=== PATIENT | female | born 1945 | race Caucasian/White ===

== ENCOUNTER 2025-06-03 06:08 | Inpatient (IN) | payer MEDICARE ==
[2025-06-03] MEDS ORDERED: Vancomycin HCl 1.5 GM VIAL ONE (06:54)
[2025-06-03] MEDS ORDERED: CEFAZOLIN 2 GM VIAL ONE (06:54)
[2025-06-03] MEDS ORDERED: Tranexamic Acid 1,000 MG/10 ML VIAL ONE ×2 (06:54→10:35)
[2025-06-03] MEDS ORDERED: Ropivacaine 0.5% HCl/PF (150 MG/30 ML VIAL) ONE (07:47)
[2025-06-03] MEDS ORDERED: Bupivacaine 0.25% HCL 30 ML VIAL ONE (07:56)
[2025-06-03] MEDS ORDERED: Lidocaine 1% PF 5 ML VIAL ONE (08:25)
[2025-06-03] MEDS ORDERED: PROPOFOL 20 ML ONE (08:26)
[2025-06-03] MEDS ORDERED: fentaNYL PF 100 MCG/2 ML SYRINGE ONE ×3 (08:26→11:29)
[2025-06-03] MEDS ORDERED: Ondansetron PF 4 MG/2 ML Vial ONE (08:27)
[2025-06-03] MEDS ORDERED: HYDROcodone/Acetaminophen 10/325 mg Tablet PO PRN (08:30)
[2025-06-03] MEDS ORDERED: Ropivacaine 0.2% 550 ML 550 ML NERVE BLCK SCH (08:30)
[2025-06-03] MEDS ORDERED: PHENYLEPHRINE-NS 100 MCG/ML 10 ML SYRINGE ONE (08:46)
[2025-06-03] MEDS ORDERED: HYDROmorphone 2 MG/ML VIAL ONE (08:56)
[2025-06-03] MEDS ORDERED: Ketamine In 0.9 % NaCl 50 MG/5 ML SYRINGE ONE (09:10)
[2025-06-03] MEDS ORDERED: Ketorolac Tromethamine 30 MG (1 mL) VIAL ONE (10:15)
[2025-06-03] MEDS ORDERED: diphenhydrAMINE 25 MG CAP PO PRN (10:17)
[2025-06-03] MEDS ORDERED: Ondansetron PF 4 MG/2 ML Vial IVP PRN (10:17)
[2025-06-03] MEDS ORDERED: HYDROmorphone 0.5 MG/0.5 ML SYRINGE ONE ×2 (11:29→11:52)
[2025-06-03] MEDS: Ketorolac Tromethamine 30 MG (1 mL) VIAL IVP SCH (14:26)
[2025-06-03 15:04] VITALS: BMI 38.5
[2025-06-03 16:45] VITALS: BMI 38.5
[2025-06-03] MEDS: Ondansetron PF 4 MG/2 ML Vial IVP PRN (19:02)
[2025-06-03] MEDS: Senokot S 8.6-50 MG TAB PO SCH (20:38)
[2025-06-03] MEDS: Ferrous Gluconate 324 MG TAB PO SCH (20:38)
[2025-06-03] MEDS: Aspirin 81 mg Enteric Coated Tablet PO SCH (20:38)
[2025-06-04 06:12] LABS: Hematocrit 29.5 % (36.0-47.0); Hemoglobin 9.6 g/dL (12.0-16.0); Mean Corpuscular Hemoglobin 31.6 pg (27.0-31.0); Mean Corpuscular Volume 97.0 fL (78.0-98.0); Platelet Count 156 10x3/uL (130-400); Red Blood Cell (RBC) Count 3.04 mill/uL (4.20-5.40); White Blood Cell (WBC) Count 8.21 10x3/uL (4.8-10.8)
[2025-06-04] MEDS ORDERED: Non-Formulary Item 1 EACH (Hydrochlorothiazide [Hydrochlorothiazide] 50 MG Tablet) PO SCH (09:00)
[2025-06-04] MEDS ORDERED: Non-Formulary Item 1 EACH (Losartan Potassium [Losartan Potassium] 50 MG Tablet) PO SCH (09:00)
[2025-06-04] MEDS: Multivitamin W/ Minerals 1 TAB PO SCH (09:01)
[2025-06-04] MEDS: Citalopram 20 MG TAB PO SCH (09:02)
[2025-06-04] MEDS: Losartan 25 MG TAB PO SCH (09:02)
[2025-06-04] MEDS: HYDROcodone/Acetaminophen 10/325 mg Tablet PO PRN (09:03)
[2025-06-05 05:28] LABS: Hematocrit 27.3 % (36.0-47.0); Hemoglobin 8.7 g/dL (12.0-16.0); Mean Corpuscular Hemoglobin 31.8 pg (27.0-31.0); Mean Corpuscular Volume 99.6 fL (78.0-98.0); Platelet Count 129 10x3/uL (130-400); Red Blood Cell (RBC) Count 2.74 mill/uL (4.20-5.40); White Blood Cell (WBC) Count 6.32 10x3/uL (4.8-10.8)
[2025-06-05 08:14] VITALS: BP 115/63; TEMP 98.5
[2025-06-05] MEDS: Acetaminophen 325 MG TAB PO PRN (09:40)
== END 2025-06-05 10:45 | disposition home or self-care (01) | DRG 470 ==
LOC: SDC 06:08 → SURG A 14:19
PROVIDERS: ADMIT Orthopaedic Surgery; ATTEND Orthopaedic Surgery
PROC: 0SRD0J9 Replacement of Left Knee Joint with Synthetic Substitute, Cemented, Open Approach (ICD-10-PCS; principal; 2025-06-03)
PROC: 3E03329 Introduction of Other Anti-infective into Peripheral Vein, Percutaneous Approach (ICD-10-PCS; 2025-06-03)
DX: M17.12 Unilateral primary osteoarthritis, left knee (principal); D62 Acute posthemorrhagic anemia; E03.9 Hypothyroidism, unspecified; F41.9 Anxiety disorder, unspecified; Z91.040 Latex allergy status; Z90.49 Acquired absence of other specified parts of digestive tract; Z98.51 Tubal ligation status; Z98.890 Other specified postprocedural states; Z90.710 Acquired absence of both cervix and uterus; Z79.890 Hormone replacement therapy
CPT/HCPCS: 36415; 85027; A4306; C1713; C1776; C1889; J0665; J1100; J1171; J1885; J2250; J2704; J2795; J3373; J3490; J7050; J7500; J7512; Q0162